=== PATIENT | female | born 1945 | race African-American/Black ===

== ENCOUNTER 2022-09-22 14:31 | Emergency (ER) | payer MEDICARE ==
[2022-09-22 16:33] LABS: #Eosinphils 0.3 thou/uL (0.0-0.7); #Lymphocytes 1.5 thou/uL (1.20-3.40); #Monocytes 0.5 thou/uL (0.11-0.59); #Neutrophils 4.4 thou/uL (1.40-6.50); %Basophils 0.2 % (0.0-1.0); %Eosinophils 4.6 % (0.0-10.0); %Monocytes 6.6 % (0.0-10.0); %Neutrophils 65.6 % (42.0-75.0); Hemoglobin 9.9 g/dL (12.0-16.0); Mean Corpuscular Hemoglobin 21.7 pg (27.0-31.0); Mean Corpuscular Volume 72.3 fl (78.0-98.0); Mean Platelet Volume 11.9 fL (7.4-10.4); Platelet Count 323 10x3/uL (130-400); Red Blood Cell (RBC) Count 4.55 mill/uL (4.20-5.40); White Blood Cell (WBC) Count 6.7 10x3/uL (4.8-10.8)
[2022-09-22 16:43] LABS: PTT 33.1 sec (22.9-36.1); Prothrombin Time 13.5 sec (12.0-14.7)
[2022-09-22 16:47] LABS: Anisocytosis SLIGHT = 6-15 cells (100X) (0-5/hpf); Hypochromia SLIGHT = 6-15 cells (100X) (0-5/hpf); MDiff Complete? YES; Microcytosis SLIGHT = 6-15 cells (100X) (0-5/hpf); Ovalocytes SLIGHT = 2-5 cells (100X) (0-1/hpf); Platelet Morphology Comment Appears Adequate; Polychromasia SLIGHT = 2-3 cells (100X) (0-2/hpf); Target Cells SLIGHT = 2-5 cells (100X) (0-1/hpf)
[2022-09-22 16:55] LABS: ALT (SGPT) 7 U/L (8-55); AST (SGOT) 16 U/L (5-34); Albumin 3.5 g/dL (3.4-4.8); Alkaline Phosphatase 92 U/L (40-110); Anion Gap 17 mmol/L (10-20); BUN (Urea Nitrogen) 27 mg/dL (9.8-20.1); Bilirubin, Total 0.5 mg/dL (0.2-1.2); Calc. Creatinine Clearance 0 mL/min (70-130); Calcium 9.9 mg/dL (7.8-10.44); Carbon Dioxide 29 mmol/L (23-31); Chloride 96 mmol/L (98-107); Estimated GFR 15; Globulin 2.7 g/dL (2.4-3.5); Glucose 131 mg/dL (83-110); Lipase 33 U/L (8-78); Magnesium 2.5 mg/dL (1.6-2.6); Potassium 4.6 mmol/L (3.5-5.1); Protein, Total 6.2 g/dL (5.8-8.1); Sodium 137 mmol/L (136-145)
== END 2022-09-22 19:40 | disposition home or self-care (01) ==
LOC: ERS 14:31
DX: R06.00 Dyspnea, unspecified (principal); R60.9 Edema, unspecified; R79.89 Other specified abnormal findings of blood chemistry; E03.9 Hypothyroidism, unspecified; E11.9 Type 2 diabetes mellitus without complications; I11.0 Hypertensive heart disease with heart failure; I50.9 Heart failure, unspecified; E78.00 Pure hypercholesterolemia, unspecified
CPT/HCPCS: 36415; 71045; 80053; 83690; 83735; 83880; 84484; 85025; 85610; 85730

== ENCOUNTER 2022-09-28 21:30 | Inpatient (IN) | payer MEDICARE ==
[2022-09-28] MEDS ORDERED: Nitroglycerin 2% Ointment 1 INCH/1 GM Packet ONE (22:12)
[2022-09-28] MEDS ORDERED: Nitroglycerin 0.4 MG TAB 1 EACH ONE (22:12)
[2022-09-29] MEDS ORDERED: Acetaminophen 650 MG Suppository PR PRN (01:34)
[2022-09-29] MEDS ORDERED: Ondansetron ODT 4 MG TAB PO PRN (01:34)
[2022-09-29] MEDS ORDERED: Dextrose 5% in Water 1,000 ML IV PRN (01:50)
[2022-09-29] MEDS ORDERED: Dextrose 50% Abboject 50 ML SYRINGE SLOW IVP PRN (01:50)
[2022-09-29 02:18] LABS: Troponin I Less than 0.010 ng/mL (< 0.028)
[2022-09-29] MEDS ORDERED: methylPREDNISolone Sod Succ 40 MG VIAL IVP SCH (04:15)
[2022-09-29] MEDS: Dextrose 10% in Water 1,000 ML IV SCH ×2 (04:55→09:07)
[2022-09-29 05:19] LABS: Anion Gap 12 mmol/L (10-20); BUN (Urea Nitrogen) 21 mg/dL (9.8-20.1); Calc. Creatinine Clearance 17 mL/min (70-130); Calcium 8.5 mg/dL (7.8-10.44); Carbon Dioxide 28 mmol/L (23-31); Chloride 98 mmol/L (98-107); Estimated GFR 17; Glucose 184 mg/dL (83-110); Sodium 134 mmol/L (136-145)
[2022-09-29 05:26] LABS: Troponin I Less than 0.010 ng/mL (< 0.028)
[2022-09-29 05:46] LABS: Hemoglobin 8.7 g/dL (12.0-16.0); Mean Corpuscular HGB CONC 32.2 g/dL (32.0-36.0); Mean Corpuscular Hemoglobin 24.1 pg (27.0-31.0); Mean Corpuscular Volume 74.9 fl (78.0-98.0); Mean Platelet Volume 11.6 fL (7.4-10.4); Platelet Count 226 10x3/uL (130-400); RBC Distribution Width 18.3 % (11.5-14.5); Red Blood Cell (RBC) Count 3.62 mill/uL (4.20-5.40); White Blood Cell (WBC) Count 8.3 10x3/uL (4.8-10.8)
[2022-09-29 06:16] LABS: Band 4 % (5-11); Burr Cells SLIGHT = 2-5 cells (100X) (0-1/hpf); Eosinophils 4 % (0-10); Lymphocytes 5 % (21-51); MDiff Complete? YES; Microcytosis MODERATE=15-30 cells (100X) (0-5/hpf); Monocytes 7 % (0-10); Neutrophil 80 % (42-75); Platelet Morphology Comment Appears Adequate; Target Cells SLIGHT = 2-5 cells (100X) (0-1/hpf); Tear Drops SLIGHT = 2-5 cells (100X) (0-1/hpf)
[2022-09-29] MEDS ORDERED: Enoxaparin Sodium 40 MG/0.4 ML SYRINGE SC SCH (09:00)
[2022-09-29] MEDS: Furosemide 40 MG/4 ML VIAL SLOW IVP SCH (09:11)
[2022-09-29] MEDS: cefTRIAXone\\ROCEPHIN 1 GM in Sodium Chloride 0.9% 100 ML IVPB SCH (14:40)
[2022-09-29] MEDS: Mometasone 200 MCG/Formoterol 5 MCG 120 PUFF INHALER INH SCH (18:21)
[2022-09-29] MEDS ORDERED: hydrALAZINE 20 MG/ML VIAL SLOW IVP SCH (20:45)
[2022-09-30] MEDS: Acetaminophen 325 MG TAB PO PRN ×2 (01:05→11:16)
[2022-09-30] MEDS ORDERED: hydrALAZINE 20 MG/ML VIAL SLOW IVP SCH (05:00)
[2022-09-30] MEDS ORDERED: cloNIDine 0.2 MG TAB PO PRN ×2 (07:30→08:20)
[2022-09-30] MEDS: hydrALAZINE 25 MG TAB PO SCH ×3 (08:48→18:33)
[2022-09-30] MEDS: Furosemide 40 MG/4 ML VIAL SLOW IVP SCH (08:48)
[2022-09-30] MEDS: methylPREDNISolone Sod Succ 40 MG VIAL IVP SCH (08:48)
[2022-09-30] MEDS: NIFEdipine XL 90 MG TAB PO SCH (08:49)
[2022-09-30] MEDS: Calcitriol 0.25 MCG CAP PO SCH (08:49)
[2022-09-30] MEDS: Aspirin 81 mg Enteric Coated Tablet PO SCH (08:49)
[2022-09-30] MEDS: Magnesium Oxide 400 MG TAB PO SCH (08:49)
[2022-09-30] MEDS: Mometasone 200 MCG/Formoterol 5 MCG 120 PUFF INHALER INH SCH ×2 (08:55→17:15)
[2022-09-30] MEDS ORDERED: Potassium Chloride 20 MEQ TAB PO SCH (09:00)
[2022-09-30] MEDS ORDERED: Enoxaparin Sodium 30 MG/0.3 ML SYRINGE SC SCH ×2 (09:00→19:04)
[2022-09-30] MEDS ORDERED: guaiFENesin 200 MG TAB PO PRN (10:32)
[2022-09-30] MEDS ORDERED: Iopamidol-370 76% 500 ML 1 ML ONE (10:58)
[2022-09-30] MEDS ORDERED: Dextrose 5% in Water 1,000 ML IV PRN (13:41)
[2022-09-30] MEDS ORDERED: Dextrose 50% Abboject 50 ML SYRINGE SLOW IVP PRN (13:41)
[2022-09-30] MEDS: cefTRIAXone\\ROCEPHIN 1 GM in Sodium Chloride 0.9% 100 ML IVPB SCH (15:29)
[2022-09-30] MEDS ORDERED: hydrALAZINE 20 MG/ML VIAL ONE (17:21)
[2022-09-30] MEDS: Ondansetron PF 4 MG/2 ML Vial IVP PRN (21:18)
[2022-09-30] MEDS: Atorvastatin Calcium 10 MG TAB PO SCH (21:19)
[2022-09-30] MEDS: Terazosin HCl 5 MG CAP PO SCH (21:19)
[2022-09-30] MEDS: HumaLOG 300 UNITS/3 ML VIAL SC PRN (22:28)
[2022-10-01] MEDS: Ondansetron PF 4 MG/2 ML Vial IVP PRN ×3 (05:04→18:04)
[2022-10-01 05:20] LABS: #Basophils 0.1 thou/uL (0.0-0.2); #Eosinphils 0.1 thou/uL (0.0-0.7); #Lymphocytes 1.6 thou/uL (1.20-3.40); #Monocytes 1.1 thou/uL (0.11-0.59); #Neutrophils 7.2 thou/uL (1.40-6.50); %Basophils 0.5 % (0.0-1.0); %Eosinophils 1.4 % (0.0-10.0); %Lymphocytes 15.8 % (21.0-51.0); %Monocytes 11.1 % (0.0-10.0); %Neutrophils 71.1 % (42.0-75.0); Mean Corpuscular HGB CONC 28.1 g/dL (32.0-36.0); Mean Corpuscular Hemoglobin 20.8 pg (27.0-31.0); Mean Corpuscular Volume 73.9 fl (78.0-98.0); Mean Platelet Volume 11.8 fL (7.4-10.4); Platelet Count 289 10x3/uL (130-400); Red Blood Cell (RBC) Count 3.83 mill/uL (4.20-5.40); White Blood Cell (WBC) Count 10.1 10x3/uL (4.8-10.8)
[2022-10-01 05:29] LABS: Anion Gap 12 mmol/L (10-20); BUN (Urea Nitrogen) 21 mg/dL (9.8-20.1); Calc. Creatinine Clearance 21 mL/min (70-130); Calcium 8.9 mg/dL (7.8-10.44); Carbon Dioxide 33 mmol/L (23-31); Chloride 95 mmol/L (98-107); Estimated GFR 22; Glucose 82 mg/dL (83-110); Potassium 3.4 mmol/L (3.5-5.1); Sodium 137 mmol/L (136-145)
[2022-10-01] MEDS: Mometasone 200 MCG/Formoterol 5 MCG 120 PUFF INHALER INH SCH ×2 (06:55→18:22)
[2022-10-01] MEDS: methylPREDNISolone Sod Succ 40 MG VIAL IVP SCH (09:53)
[2022-10-01] MEDS: Furosemide 40 MG/4 ML VIAL SLOW IVP SCH (09:53)
[2022-10-01] MEDS: Heparin 5,000 UNITS/ML VIAL SC SCH ×3 (09:54→21:15)
[2022-10-01] MEDS: NIFEdipine XL 90 MG TAB PO SCH (10:45)
[2022-10-01] MEDS: hydrALAZINE 25 MG TAB PO SCH ×3 (10:45→18:03)
[2022-10-01] MEDS: Aspirin 81 mg Enteric Coated Tablet PO SCH (10:45)
[2022-10-01] MEDS: Calcitriol 0.25 MCG CAP PO SCH (10:46)
[2022-10-01] MEDS: Magnesium Oxide 400 MG TAB PO SCH (10:46)
[2022-10-01] MEDS: cefTRIAXone\\ROCEPHIN 1 GM in Sodium Chloride 0.9% 100 ML IVPB SCH (14:59)
[2022-10-01] MEDS: Terazosin HCl 5 MG CAP PO SCH (21:15)
[2022-10-01] MEDS: Atorvastatin Calcium 10 MG TAB PO SCH (21:15)
[2022-10-01] MEDS: Cefuroxime 250 MG TAB PO SCH (21:15)
[2022-10-01] MEDS: Acetaminophen 325 MG TAB PO PRN (22:24)
[2022-10-02 04:42] LABS: #Eosinphils 0.1 thou/uL (0.0-0.7); #Lymphocytes 1.9 thou/uL (1.20-3.40); #Monocytes 0.8 thou/uL (0.11-0.59); #Neutrophils 6.2 thou/uL (1.40-6.50); %Basophils 0.3 % (0.0-1.0); %Eosinophils 0.7 % (0.0-10.0); %Lymphocytes 20.7 % (21.0-51.0); %Monocytes 9.2 % (0.0-10.0); %Neutrophils 69.1 % (42.0-75.0); Mean Corpuscular HGB CONC 28.6 g/dL (32.0-36.0); Mean Corpuscular Hemoglobin 21.3 pg (27.0-31.0); Mean Corpuscular Volume 74.2 fl (78.0-98.0); Platelet Count 317 10x3/uL (130-400); Red Blood Cell (RBC) Count 3.75 mill/uL (4.20-5.40); White Blood Cell (WBC) Count 8.9 10x3/uL (4.8-10.8)
[2022-10-02 05:01] LABS: Anion Gap 15 mmol/L (10-20); BUN (Urea Nitrogen) 26 mg/dL (9.8-20.1); Calc. Creatinine Clearance 19 mL/min (70-130); Carbon Dioxide 33 mmol/L (23-31); Chloride 93 mmol/L (98-107); Estimated GFR 20; Glucose 111 mg/dL (83-110); Potassium 3.5 mmol/L (3.5-5.1); Sodium 137 mmol/L (136-145)
[2022-10-02] MEDS: Mometasone 200 MCG/Formoterol 5 MCG 120 PUFF INHALER INH SCH ×2 (06:47→18:27)
[2022-10-02] MEDS: hydrALAZINE 25 MG TAB PO SCH ×3 (09:42→17:25)
[2022-10-02] MEDS: methylPREDNISolone Sod Succ 40 MG VIAL IVP SCH (09:43)
[2022-10-02] MEDS: Magnesium Oxide 400 MG TAB PO SCH (09:43)
[2022-10-02] MEDS: Calcitriol 0.25 MCG CAP PO SCH (09:44)
[2022-10-02] MEDS: Aspirin 81 mg Enteric Coated Tablet PO SCH (09:44)
[2022-10-02] MEDS: Cefuroxime 250 MG TAB PO SCH ×2 (09:44→21:10)
[2022-10-02] MEDS: NIFEdipine XL 90 MG TAB PO SCH (09:44)
[2022-10-02] MEDS: Heparin 5,000 UNITS/ML VIAL SC SCH ×3 (09:45→21:11)
[2022-10-02] MEDS: Furosemide 40 MG/4 ML VIAL SLOW IVP SCH (09:45)
[2022-10-02] MEDS: HumaLOG 300 UNITS/3 ML VIAL SC PRN (17:28)
[2022-10-02] MEDS ORDERED: HYDROcodone/Acetaminophen 5/325 mg Tablet PO SCH (19:15)
[2022-10-02] MEDS: Terazosin HCl 5 MG CAP PO SCH (21:10)
[2022-10-02] MEDS: Atorvastatin Calcium 10 MG TAB PO SCH (21:10)
[2022-10-03] MEDS: Acetaminophen 325 MG TAB PO PRN (05:03)
[2022-10-03 05:17] LABS: Anion Gap 17 mmol/L (10-20); BUN (Urea Nitrogen) 30 mg/dL (9.8-20.1); Calc. Creatinine Clearance 19 mL/min (70-130); Calcium 9.1 mg/dL (7.8-10.44); Carbon Dioxide 30 mmol/L (23-31); Chloride 94 mmol/L (98-107); Cholesterol 161 mg/dl (< 200 Desired); Estimated GFR 20; Glucose 80 mg/dL (83-110); HDL Cholesterol 81 mg/dL (>60 Neg Risk); LDL Cholesterol, Calculated 67 mg/dL; Potassium 3.6 mmol/L (3.5-5.1); Sodium 137 mmol/L (136-145); Triglycerides 64 mg/dL (Less than 150)
[2022-10-03 05:53] LABS: Anisocytosis SLIGHT = 6-15 cells (100X) (0-5/hpf); Hemoglobin 8.4 g/dL (12.0-16.0); Hypochromia MODERATE=16-30 cells (100X) (0-5/hpf); Lymphocytes 18 % (21-51); MDiff Complete? YES; Mean Corpuscular HGB CONC 28.4 g/dL (32.0-36.0); Mean Corpuscular Volume 74.1 fl (78.0-98.0); Mean Platelet Volume 11.2 fL (7.4-10.4); Microcytosis MODERATE=15-30 cells (100X) (0-5/hpf); Monocytes 9 % (0-10); Neutrophil 73 % (42-75); Ovalocytes SLIGHT = 2-5 cells (100X) (0-1/hpf); Platelet Count 375 10x3/uL (130-400); Platelet Morphology Comment Appears Adequate; Polychromasia SLIGHT = 2-3 cells (100X) (0-2/hpf); RBC Distribution Width 18.3 % (11.5-14.5); Target Cells SLIGHT = 2-5 cells (100X) (0-1/hpf); White Blood Cell (WBC) Count 10.2 10x3/uL (4.8-10.8)
[2022-10-03] MEDS: Mometasone 200 MCG/Formoterol 5 MCG 120 PUFF INHALER INH SCH ×2 (07:47→18:24)
[2022-10-03] MEDS ORDERED: Morphine 4 MG/ML VIAL SLOW IVP SCH (09:45)
[2022-10-03] MEDS: methylPREDNISolone Sod Succ 40 MG VIAL IVP SCH (10:05)
[2022-10-03] MEDS: Furosemide 40 MG/4 ML VIAL SLOW IVP SCH (10:05)
[2022-10-03] MEDS: Heparin 5,000 UNITS/ML VIAL SC SCH ×3 (10:05→21:45)
[2022-10-03] MEDS: hydrALAZINE 25 MG TAB PO SCH ×3 (10:06→16:12)
[2022-10-03] MEDS: Cefuroxime 250 MG TAB PO SCH ×2 (10:06→21:44)
[2022-10-03] MEDS: NIFEdipine XL 90 MG TAB PO SCH (10:06)
[2022-10-03] MEDS: Calcitriol 0.25 MCG CAP PO SCH (10:06)
[2022-10-03] MEDS: Magnesium Oxide 400 MG TAB PO SCH (10:06)
[2022-10-03] MEDS: Aspirin 81 mg Enteric Coated Tablet PO SCH (10:07)
[2022-10-03] MEDS: Ondansetron PF 4 MG/2 ML Vial IVP PRN (10:20)
[2022-10-03] MEDS ORDERED: Pantoprazole 40 MG VIAL IVP SCH (11:30)
[2022-10-03] MEDS ORDERED: Carvedilol 6.25 MG TAB PO SCH (11:45)
[2022-10-03] MEDS: Carvedilol 6.25 MG TAB PO SCH (16:13)
[2022-10-03] MEDS ORDERED: Mag-Al 1200 mg/1200 mg/30 ML UDCUP PO PRN (16:48)
[2022-10-03] MEDS: Terazosin HCl 5 MG CAP PO SCH (21:44)
[2022-10-03] MEDS: Atorvastatin Calcium 10 MG TAB PO SCH (21:44)
[2022-10-03] MEDS: Pantoprazole 40 MG VIAL IVP SCH (21:44)
[2022-10-04] MEDS: Mometasone 200 MCG/Formoterol 5 MCG 120 PUFF INHALER INH SCH ×2 (07:13→19:00)
[2022-10-04] MEDS: Carvedilol 6.25 MG TAB PO SCH ×3 (10:21→16:36)
[2022-10-04] MEDS: Heparin 5,000 UNITS/ML VIAL SC SCH ×3 (10:21→22:07)
[2022-10-04] MEDS: hydrALAZINE 25 MG TAB PO SCH ×4 (10:21→16:36)
[2022-10-04] MEDS: Magnesium Oxide 400 MG TAB PO SCH (10:23)
[2022-10-04] MEDS: NIFEdipine XL 90 MG TAB PO SCH (10:23)
[2022-10-04] MEDS: predniSONE 20 MG TAB PO SCH (10:23)
[2022-10-04] MEDS: Aspirin 81 mg Enteric Coated Tablet PO SCH (10:23)
[2022-10-04] MEDS: Cefuroxime 250 MG TAB PO SCH ×2 (10:24→22:05)
[2022-10-04] MEDS: Calcitriol 0.25 MCG CAP PO SCH (10:24)
[2022-10-04] MEDS: Amino Acids 4.25 %/Dextrose 5% 1,000 ML IV SCH ×2 (11:02→22:07)
[2022-10-04] MEDS: Pantoprazole 40 MG VIAL IVP SCH ×2 (11:02→22:05)
[2022-10-04] MEDS: Ondansetron PF 4 MG/2 ML Vial IVP SCH (11:02)
[2022-10-04] MEDS: Ondansetron PF 4 MG/2 ML Vial IVP PRN ×2 (16:27→22:39)
[2022-10-04] MEDS: HumaLOG 300 UNITS/3 ML VIAL SC PRN (18:15)
[2022-10-04] MEDS: Terazosin HCl 5 MG CAP PO SCH (22:05)
[2022-10-04] MEDS: Atorvastatin Calcium 10 MG TAB PO SCH (22:05)
[2022-10-04] MEDS: Acetaminophen 325 MG TAB PO PRN (22:39)
[2022-10-05 06:21] LABS: Hemoglobin 7.5 g/dL (12.0-16.0); Mean Corpuscular HGB CONC 28.4 g/dL (32.0-36.0); Mean Corpuscular Hemoglobin 21.1 pg (27.0-31.0); Mean Corpuscular Volume 74.4 fl (78.0-98.0); Mean Platelet Volume 10.7 fL (7.4-10.4); Platelet Count 346 10x3/uL (130-400); RBC Distribution Width 18.6 % (11.5-14.5); Red Blood Cell (RBC) Count 3.56 mill/uL (4.20-5.40); White Blood Cell (WBC) Count 11.6 10x3/uL (4.8-10.8)
[2022-10-05 06:24] LABS: Anion Gap 11 mmol/L (10-20); BUN (Urea Nitrogen) 53 mg/dL (9.8-20.1); Calc. Creatinine Clearance 22 mL/min (70-130); Calcium 8.7 mg/dL (7.8-10.44); Carbon Dioxide 35 mmol/L (23-31); Chloride 89 mmol/L (98-107); Estimated GFR 25; Glucose 135 mg/dL (83-110); Potassium 3.5 mmol/L (3.5-5.1); Sodium 131 mmol/L (136-145)
[2022-10-05] MEDS: Mometasone 200 MCG/Formoterol 5 MCG 120 PUFF INHALER INH SCH ×2 (08:09→19:14)
[2022-10-05] MEDS: Carvedilol 6.25 MG TAB PO SCH ×3 (08:49→16:37)
[2022-10-05] MEDS: Heparin 5,000 UNITS/ML VIAL SC SCH ×3 (08:50→20:28)
[2022-10-05] MEDS: NIFEdipine XL 90 MG TAB PO SCH (08:50)
[2022-10-05] MEDS: Aspirin 81 mg Enteric Coated Tablet PO SCH (08:50)
[2022-10-05] MEDS: Magnesium Oxide 400 MG TAB PO SCH (08:50)
[2022-10-05] MEDS: Cefuroxime 250 MG TAB PO SCH ×2 (08:50→20:28)
[2022-10-05] MEDS: predniSONE 20 MG TAB PO SCH (08:50)
[2022-10-05] MEDS: hydrALAZINE 25 MG TAB PO SCH ×4 (08:50→16:38)
[2022-10-05] MEDS: Pantoprazole 40 MG VIAL IVP SCH ×2 (08:51→20:28)
[2022-10-05] MEDS: Ondansetron PF 4 MG/2 ML Vial IVP SCH (08:51)
[2022-10-05] MEDS: Calcitriol 0.25 MCG CAP PO SCH (08:52)
[2022-10-05] MEDS ORDERED: Amino Acids 4.25 %/Dextrose 5% 1,000 ML IV SCH (12:15)
[2022-10-05] MEDS: Atorvastatin Calcium 40 MG TAB PO SCH (20:28)
[2022-10-05] MEDS: Terazosin HCl 5 MG CAP PO SCH (20:28)
[2022-10-05] MEDS: Acetaminophen 325 MG TAB PO PRN (20:31)
[2022-10-06] MEDS: Mometasone 200 MCG/Formoterol 5 MCG 120 PUFF INHALER INH SCH ×2 (08:37→18:39)
[2022-10-06] MEDS: Carvedilol 6.25 MG TAB PO SCH ×2 (08:50→16:14)
[2022-10-06] MEDS: Magnesium Oxide 400 MG TAB PO SCH (08:51)
[2022-10-06] MEDS: Cefuroxime 250 MG TAB PO SCH ×2 (08:51→21:51)
[2022-10-06] MEDS: hydrALAZINE 25 MG TAB PO SCH ×3 (08:51→16:14)
[2022-10-06] MEDS: predniSONE 20 MG TAB PO SCH (08:51)
[2022-10-06] MEDS: Aspirin 81 mg Enteric Coated Tablet PO SCH (08:51)
[2022-10-06] MEDS: Heparin 5,000 UNITS/ML VIAL SC SCH ×3 (08:51→21:52)
[2022-10-06] MEDS: NIFEdipine XL 90 MG TAB PO SCH (08:51)
[2022-10-06] MEDS: Pantoprazole 40 MG VIAL IVP SCH ×2 (08:52→21:52)
[2022-10-06] MEDS: Calcitriol 0.25 MCG CAP PO SCH (08:52)
[2022-10-06] MEDS: Ondansetron PF 4 MG/2 ML Vial IVP SCH (08:52)
[2022-10-06] MEDS: Atorvastatin Calcium 40 MG TAB PO SCH (21:51)
[2022-10-06] MEDS: Terazosin HCl 5 MG CAP PO SCH (21:51)
[2022-10-06] MEDS: HumaLOG 300 UNITS/3 ML VIAL SC PRN (21:52)
[2022-10-07 05:58] LABS: Hemoglobin 7.2 g/dL (12.0-16.0); Mean Corpuscular HGB CONC 29.3 g/dL (32.0-36.0); Mean Corpuscular Hemoglobin 22.1 pg (27.0-31.0); Mean Corpuscular Volume 75.3 fl (78.0-98.0); Mean Platelet Volume 10.8 fL (7.4-10.4); Platelet Count 298 10x3/uL (130-400); RBC Distribution Width 19.4 % (11.5-14.5); Red Blood Cell (RBC) Count 3.24 mill/uL (4.20-5.40); White Blood Cell (WBC) Count 11.2 10x3/uL (4.8-10.8)
[2022-10-07 06:04] LABS: Anion Gap 13 mmol/L (10-20); BUN (Urea Nitrogen) 51 mg/dL (9.8-20.1); Calc. Creatinine Clearance 23 mL/min (70-130); Calcium 9.2 mg/dL (7.8-10.44); Carbon Dioxide 34 mmol/L (23-31); Chloride 95 mmol/L (98-107); Estimated GFR 26; Glucose 100 mg/dL (83-110); Potassium 3.8 mmol/L (3.5-5.1); Sodium 138 mmol/L (136-145)
[2022-10-07] MEDS: Mometasone 200 MCG/Formoterol 5 MCG 120 PUFF INHALER INH SCH ×2 (08:24→19:15)
[2022-10-07] MEDS: Carvedilol 6.25 MG TAB PO SCH ×2 (08:54→16:18)
[2022-10-07] MEDS: predniSONE 20 MG TAB PO SCH (08:54)
[2022-10-07] MEDS: Ondansetron PF 4 MG/2 ML Vial IVP SCH (08:55)
[2022-10-07] MEDS: hydrALAZINE 25 MG TAB PO SCH ×3 (08:55→16:18)
[2022-10-07] MEDS: Heparin 5,000 UNITS/ML VIAL SC SCH ×3 (08:55→20:39)
[2022-10-07] MEDS: Magnesium Oxide 400 MG TAB PO SCH (08:55)
[2022-10-07] MEDS: NIFEdipine XL 90 MG TAB PO SCH (08:56)
[2022-10-07] MEDS: Pantoprazole 40 MG VIAL IVP SCH ×2 (08:56→20:39)
[2022-10-07] MEDS: Cefuroxime 250 MG TAB PO SCH ×2 (08:56→20:38)
[2022-10-07] MEDS: Aspirin 81 mg Enteric Coated Tablet PO SCH (08:56)
[2022-10-07] MEDS: Calcitriol 0.25 MCG CAP PO SCH (08:56)
[2022-10-07] MEDS ORDERED: Docusate 100 MG CAP PO SCH (16:00)
[2022-10-07] MEDS ORDERED: Polyethylene Glycol 3350 17 GM Packet PO SCH (16:00)
[2022-10-07] MEDS: HumaLOG 300 UNITS/3 ML VIAL SC PRN ×2 (18:42→20:40)
[2022-10-07] MEDS: Atorvastatin Calcium 40 MG TAB PO SCH (20:37)
[2022-10-07] MEDS: Acetaminophen 325 MG TAB PO PRN (20:37)
[2022-10-07] MEDS: Terazosin HCl 5 MG CAP PO SCH (20:38)
[2022-10-07] MEDS ORDERED: Dicyclomine 10 MG CAP PO SCH (23:30)
[2022-10-08] MEDS ORDERED: Sodium Chloride 0.9% 500 ML IV SCH ×2 (02:45→04:00)
[2022-10-08 04:15] LABS: Hemoglobin 5.2 g/dL (12.0-16.0); Mean Corpuscular HGB CONC 32.5 g/dL (32.0-36.0); Mean Corpuscular Hemoglobin 24.1 pg (27.0-31.0); Mean Corpuscular Volume 74.4 fl (78.0-98.0); Mean Platelet Volume 10.5 fL (7.4-10.4); Platelet Count 236 10x3/uL (130-400); RBC Distribution Width 20.4 % (11.5-14.5); Red Blood Cell (RBC) Count 2.14 mill/uL (4.20-5.40); White Blood Cell (WBC) Count 13.1 10x3/uL (4.8-10.8)
[2022-10-08 04:23] LABS: Anion Gap 11 mmol/L (10-20); BUN (Urea Nitrogen) 53 mg/dL (9.8-20.1); Calc. Creatinine Clearance 18 mL/min (70-130); Calcium 8.9 mg/dL (7.8-10.44); Carbon Dioxide 34 mmol/L (23-31); Chloride 93 mmol/L (98-107); Estimated GFR 19; Glucose 107 mg/dL (83-110); Potassium 4.1 mmol/L (3.5-5.1); Sodium 134 mmol/L (136-145)
[2022-10-08] MEDS ORDERED: Sucralfate 1 GM TAB PO SCH (04:30)
[2022-10-08 04:33] LABS: #Eosinphils 0.1 thou/uL (0.0-0.7); #Lymphocytes 1.4 thou/uL (1.20-3.40); #Monocytes 0.9 thou/uL (0.11-0.59); #Neutrophils 10.7 thou/uL (1.40-6.50); %Eosinophils 0.6 % (0.0-10.0); %Lymphocytes 10.6 % (21.0-51.0); %Monocytes 7.2 % (0.0-10.0); %Neutrophils 81.6 % (42.0-75.0); Anisocytosis SLIGHT = 6-15 cells (100X) (0-5/hpf); Hypochromia MODERATE=16-30 cells (100X) (0-5/hpf); MDiff Complete? YES; Microcytosis SLIGHT = 6-15 cells (100X) (0-5/hpf); Schistocytes SLIGHT = 2-5 cells (100X) (0-1/hpf); Tear Drops SLIGHT = 2-5 cells (100X) (0-1/hpf)
[2022-10-08] MEDS ORDERED: Sodium Chloride 0.9% 1,000 ML IV SCH (05:00)
[2022-10-08] MEDS: Ondansetron PF 4 MG/2 ML Vial IVP PRN ×3 (06:32→18:35)
[2022-10-08] MEDS: Mometasone 200 MCG/Formoterol 5 MCG 120 PUFF INHALER INH SCH ×2 (08:31→19:36)
[2022-10-08] MEDS: Carvedilol 6.25 MG TAB PO SCH ×2 (08:37→17:42)
[2022-10-08] MEDS: Heparin 5,000 UNITS/ML VIAL SC SCH (08:38)
[2022-10-08] MEDS: Magnesium Oxide 400 MG TAB PO SCH (08:39)
[2022-10-08] MEDS: Pantoprazole 40 MG VIAL IVP SCH ×2 (08:40→21:45)
[2022-10-08] MEDS: Calcitriol 0.25 MCG CAP PO SCH (08:40)
[2022-10-08] MEDS: predniSONE 20 MG TAB PO SCH (08:40)
[2022-10-08] MEDS: Aspirin 81 mg Enteric Coated Tablet PO SCH (08:40)
[2022-10-08 08:43] VITALS: BMI 25.6
[2022-10-08] MEDS: Cefuroxime 250 MG TAB PO SCH (10:51)
[2022-10-08 11:20] LABS: INR-International Normal Ratio 1.2; Prothrombin Time 16.1 sec (12.0-14.7)
[2022-10-08 11:21] LABS: PTT 85.4 sec (22.9-36.1)
[2022-10-08 11:25] LABS: Hemoglobin 8.1 g/dL (12.0-16.0)
[2022-10-08 11:46] LABS: Glucose 117 mg/dL (83-110)
[2022-10-08] MEDS: Acetaminophen 325 MG TAB PO PRN (12:49)
[2022-10-08] MEDS ORDERED: NOREPINEPHRINE 8 MG/250 ML-D5W 250 ML ONE (15:16)
[2022-10-08] MEDS: NOREPINEPHRINE 8 MG/250 ML-D5W 250 ML IVPB SCH ×2 (15:20→22:01)
[2022-10-08 15:39] LABS: #Lymphocytes 1.4 thou/uL (1.20-3.40); #Monocytes 0.7 thou/uL (0.11-0.59); #Neutrophils 15.4 thou/uL (1.40-6.50); %Eosinophils 0.2 % (0.0-10.0); %Lymphocytes 7.8 % (21.0-51.0); %Monocytes 4.1 % (0.0-10.0); %Neutrophils 87.9 % (42.0-75.0); Hemoglobin 6.9 g/dL (12.0-16.0); Mean Corpuscular HGB CONC 32.1 g/dL (32.0-36.0); Mean Corpuscular Hemoglobin 26.8 pg (27.0-31.0); Mean Corpuscular Volume 83.7 fl (78.0-98.0); Mean Platelet Volume 10.4 fL (7.4-10.4); Platelet Count 193 10x3/uL (130-400); RBC Distribution Width 17.9 % (11.5-14.5); Red Blood Cell (RBC) Count 2.59 mill/uL (4.20-5.40); White Blood Cell (WBC) Count 17.5 10x3/uL (4.8-10.8)
[2022-10-08 15:46] LABS: INR-International Normal Ratio 1.3; Prothrombin Time 16.8 sec (12.0-14.7)
[2022-10-08 15:47] LABS: PTT 55.1 sec (22.9-36.1)
[2022-10-08] MEDS ORDERED: Morphine 4 MG/ML VIAL SLOW IVP PRN (16:17)
[2022-10-08] MEDS ORDERED: FENTANYL 50 MCG/ML 1 ML VIAL SLOW IVP PRN (18:26)
[2022-10-08 19:39] LABS: Hemoglobin 8.7 g/dL (12.0-16.0)
[2022-10-08 19:50] LABS: INR-International Normal Ratio 1.3; Prothrombin Time 17.2 sec (12.0-14.7)
[2022-10-08 19:51] LABS: PTT 43.2 sec (22.9-36.1)
[2022-10-08] MEDS ORDERED: Rocuronium Bromide 10 MG/ML (10ML VIAL) ONE (20:02)
[2022-10-08] MEDS ORDERED: EPINEPHrine 4 MG in Dextrose 5% in Water 250 ML IVP SCH (20:15)
[2022-10-08 21:01] LABS: Base Excess (BEa) -2.3 mEq/L (-2.0 to +3.0); CO2 Tension 30.1 mmHg (35.0-45.0); Calcium, Ionized (arterial) 1.06 mmol/L (1.12-1.30); Carboxyhemoglobin (COHb) 0.7 gm% (0.0-3.0); Hemoglobin (Hb) 7.6 g/dL (12.0-16.0); Potassium - ABG Lab 4.46 mmol/L (3.70-5.30); pH, Arterial 7.46 (7.35-7.45)
[2022-10-08 21:14] LABS: ALV-art Gradient 202.375 mmHg (0-20); Puncture Site Arterial Line
[2022-10-08 21:47] LABS: ALT (SGPT) 286 U/L (8-55); AST (SGOT) 373 U/L (5-34); Albumin 2.3 g/dL (3.4-4.8); Alkaline Phosphatase 44 U/L (40-110); Anion Gap 18 mmol/L (10-20); BUN (Urea Nitrogen) 60 mg/dL (9.8-20.1); Bilirubin, Total 1.2 mg/dL (0.2-1.2); Calc. Creatinine Clearance 15 mL/min (70-130); Calcium 7.4 mg/dL (7.8-10.44); Carbon Dioxide 20 mmol/L (23-31); Chloride 98 mmol/L (98-107); Estimated GFR 15; Globulin 1.7 g/dL (2.4-3.5); Glucose 209 mg/dL (83-110); Potassium 4.5 mmol/L (3.5-5.1); Sodium 131 mmol/L (136-145)
[2022-10-08 21:54] LABS: Band 12 % (5-11); Hemoglobin 7.5 g/dL (12.0-16.0); Lymphocytes 9 % (21-51); MDiff Complete? YES; Mean Corpuscular HGB CONC 31.7 g/dL (32.0-36.0); Mean Corpuscular Hemoglobin 27.5 pg (27.0-31.0); Mean Corpuscular Volume 86.5 fl (78.0-98.0); Mean Platelet Volume 10.4 fL (7.4-10.4); Monocytes 3 % (0-10); Neutrophil 76 % (42-75); Platelet Count 171 10x3/uL (130-400); RBC Distribution Width 16.6 % (11.5-14.5); Red Blood Cell (RBC) Count 2.73 mill/uL (4.20-5.40); White Blood Cell (WBC) Count 21.4 10x3/uL (4.8-10.8)
[2022-10-08] MEDS: Terazosin HCl 5 MG CAP PO SCH (22:02)
[2022-10-08] MEDS: Atorvastatin Calcium 40 MG TAB PO SCH (22:02)
[2022-10-09] MEDS: NOREPINEPHRINE 8 MG/250 ML-D5W 250 ML IVPB SCH ×2 (01:42→08:05)
[2022-10-09 07:28] LABS: Mean Corpuscular HGB CONC 32.9 g/dL (32.0-36.0); Mean Corpuscular Hemoglobin 29.4 pg (27.0-31.0); Mean Corpuscular Volume 89.5 fl (78.0-98.0); Mean Platelet Volume 10.3 fL (7.4-10.4); Platelet Count 171 10x3/uL (130-400); Red Blood Cell (RBC) Count 3.05 mill/uL (4.20-5.40); White Blood Cell (WBC) Count 23.2 10x3/uL (4.8-10.8)
[2022-10-09 07:35] LABS: INR-International Normal Ratio 1.6; PTT 36.4 sec (22.9-36.1); Prothrombin Time 19.5 sec (12.0-14.7)
[2022-10-09] MEDS: Mometasone 200 MCG/Formoterol 5 MCG 120 PUFF INHALER INH SCH ×2 (07:40→18:32)
[2022-10-09 07:44] LABS: Phosphorus 4.1 mg/dL (2.3-4.7)
[2022-10-09 07:47] LABS: ALT (SGPT) 997 U/L (8-55); AST (SGOT) 2051 U/L (5-34); Albumin 2.7 g/dL (3.4-4.8); Alkaline Phosphatase 65 U/L (40-110); Anion Gap 15 mmol/L (10-20); BUN (Urea Nitrogen) 64 mg/dL (9.8-20.1); Calc. Creatinine Clearance 14 mL/min (70-130); Calcium 7.7 mg/dL (7.8-10.44); Carbon Dioxide 24 mmol/L (23-31); Chloride 97 mmol/L (98-107); Estimated GFR 13; Globulin 1.9 g/dL (2.4-3.5); Glucose 220 mg/dL (83-110); Magnesium 2.4 mg/dL (1.6-2.6); Potassium 4.5 mmol/L (3.5-5.1); Protein, Total 4.6 g/dL (5.8-8.1); Sodium 131 mmol/L (136-145)
[2022-10-09 07:57] LABS: Actual Bicarbonate (HCO3a) 24.8 mEq/L (22-28); Base Excess (BEa) 0.2 mEq/L (-2.0 to +3.0); CO2 Tension 40.1 mmHg (35.0-45.0); Calcium, Ionized (arterial) 1.09 mmol/L (1.12-1.30); Carboxyhemoglobin (COHb) 0.3 gm% (0.0-3.0); Hemoglobin (Hb) 9.5 g/dL (12.0-16.0); O2 Tension (PaO2), arterial 137.9 mmHg (> 70.0); Potassium - ABG Lab 4.43 mmol/L (3.70-5.30); pH, Arterial 7.41 (7.35-7.45)
[2022-10-09 07:59] LABS: ALV-art Gradient 97.175 mmHg (0-20); Puncture Site Arterial Line
[2022-10-09] MEDS: Magnesium Oxide 400 MG TAB PO SCH (08:04)
[2022-10-09] MEDS: Calcitriol 0.25 MCG CAP PO SCH (08:04)
[2022-10-09] MEDS: Carvedilol 6.25 MG TAB PO SCH ×2 (08:05→17:03)
[2022-10-09] MEDS: Pantoprazole 40 MG VIAL IVP SCH ×2 (08:05→21:07)
[2022-10-09 09:43] LABS: Band 8 % (5-11); Lymphocytes 9 % (21-51); MDiff Complete? YES; Monocytes 7 % (0-10); Neutrophil 76 % (42-75); Platelet Morphology Comment Appears Adequate; Polychromasia MODERATE = 3-4 cells (100X) (0-2/hpf)
[2022-10-09 12:52] LABS: Hemoglobin 9.8 g/dL (12.0-16.0)
[2022-10-09] MEDS: Dextrose 5%-Lactated Ringers 1,000 ML IV SCH (13:58)
[2022-10-09] MEDS ORDERED: Lactated Ringer's 1,000 ML IV SCH (15:45)
[2022-10-09] MEDS: HumaLOG 300 UNITS/3 ML VIAL SC PRN (17:04)
[2022-10-09 18:44] VITALS: TEMP 97.7
[2022-10-09 18:50] LABS: Hemoglobin 6.9 g/dL (12.0-16.0)
[2022-10-09 19:58] LABS: Mean Corpuscular HGB CONC 33.9 g/dL (32.0-36.0); Mean Corpuscular Hemoglobin 29.9 pg (27.0-31.0); Mean Corpuscular Volume 88.2 fl (78.0-98.0); Mean Platelet Volume 10.2 fL (7.4-10.4); Platelet Count 134 10x3/uL (130-400); RBC Distribution Width 15.1 % (11.5-14.5); Red Blood Cell (RBC) Count 2.33 mill/uL (4.20-5.40); White Blood Cell (WBC) Count 22.7 10x3/uL (4.8-10.8)
[2022-10-09 20:08] LABS: INR-International Normal Ratio 1.5; Prothrombin Time 18.6 sec (12.0-14.7)
[2022-10-09 20:09] LABS: PTT 38.6 sec (22.9-36.1)
[2022-10-09 20:27] LABS: Anisocytosis SLIGHT = 6-15 cells (100X) (0-5/hpf); Band 10 % (5-11); Eosinophils 1 % (0-10); Lymphocytes 10 % (21-51); MDiff Complete? YES; Microcytosis SLIGHT = 6-15 cells (100X) (0-5/hpf); Monocytes 4 % (0-10); Neutrophil 75 % (42-75); Platelet Morphology Comment Appears Adequate; Schistocytes SLIGHT = 2-5 cells (100X) (0-1/hpf)
[2022-10-09] MEDS ORDERED: Furosemide 100 MG/10 ML VIAL SLOW IVP SCH (20:45)
[2022-10-09] MEDS: Atorvastatin Calcium 40 MG TAB PO SCH (21:07)
[2022-10-09] MEDS ORDERED: Phytonadione 10 MG in Sodium Chloride 0.9% 50 ML IVPB SCH (22:45)
[2022-10-09] MEDS ORDERED: Piperacillin/Tazobactam 3.375 GM in Sodium Chloride 0.9% 100 ML IVPB SCH (23:30)
[2022-10-09 23:56] VITALS: BP 114/42
[2022-10-10] MEDS: Dextrose 5%-Lactated Ringers 1,000 ML IV SCH ×3 (00:25→00:39)
[2022-10-10 01:15] LABS: Hemoglobin 10.4 g/dL (12.0-16.0)
[2022-10-10] MEDS ORDERED: Piperacillin/Tazobactam 3.375 GM in Sodium Chloride 0.9% 100 ML IVPB SCH (04:00)
[2022-10-10] MEDS ORDERED: Piperacillin/Tazobactam 2.25 GM in Sodium Chloride 0.9% 100 ML IVPB SCH (23:30)
== END 2022-10-10 01:45 | disposition short-term general hospital (02) | DRG 208 ==
LOC: ERS 21:30 → 2NO 22:53 → NEURO 10-03 22:49 → CCU 10-08 05:53
PROVIDERS: ADMIT Student in an Organized Health Care Education/Training Program; ATTEND Internal Medicine
PROC: 5A1945Z Respiratory Ventilation, 24-96 Consecutive Hours (ICD-10-PCS; principal; 2022-10-08)
PROC: 06HY33Z Insertion of Infusion Device into Lower Vein, Percutaneous Approach (ICD-10-PCS; 2022-10-08)
PROC: 3E043XZ Introduction of Vasopressor into Central Vein, Percutaneous Approach (ICD-10-PCS; 2022-10-08)
PROC: 30243P1 Transfusion of Nonautologous Frozen Red Cells into Central Vein, Percutaneous Approach (ICD-10-PCS; 2022-10-08)
PROC: 30243N1 Transfusion of Nonautologous Red Blood Cells into Central Vein, Percutaneous Approach (ICD-10-PCS; 2022-10-08)
PROC: 30243R1 Transfusion of Nonautologous Platelets into Central Vein, Percutaneous Approach (ICD-10-PCS; 2022-10-08)
PROC: 0BH17EZ Insertion of Endotracheal Airway into Trachea, Via Natural or Artificial Opening (ICD-10-PCS; 2022-10-08)
DX: J15.9 Unspecified bacterial pneumonia (principal); I50.33 Acute on chronic diastolic (congestive) heart failure; J96.01 Acute respiratory failure with hypoxia; I63.512 Cerebral infarction due to unspecified occlusion or stenosis of left middle cerebral artery; R57.1 Hypovolemic shock; R57.8 Other shock; R09.2 Respiratory arrest; K72.00 Acute and subacute hepatic failure without coma; I13.0 Hypertensive heart and chronic kidney disease with heart failure and stage 1 through stage 4 chronic kidney disease, or unspecified chronic kidney disease; J44.1 Chronic obstructive pulmonary disease with (acute) exacerbation; J44.0 Chronic obstructive pulmonary disease with (acute) lower respiratory infection; N18.4 Chronic kidney disease, stage 4 (severe); N17.9 Acute kidney failure, unspecified; D62 Acute posthemorrhagic anemia; E11.65 Type 2 diabetes mellitus with hyperglycemia; Z20.822 Contact with and (suspected) exposure to COVID-19; E03.9 Hypothyroidism, unspecified; E78.00 Pure hypercholesterolemia, unspecified; E11.22 Type 2 diabetes mellitus with diabetic chronic kidney disease; D63.1 Anemia in chronic kidney disease; E78.5 Hyperlipidemia, unspecified; N28.89 Other specified disorders of kidney and ureter; I65.23 Occlusion and stenosis of bilateral carotid arteries; R58 Hemorrhage, not elsewhere classified; G93.89 Other specified disorders of brain; Z90.49 Acquired absence of other specified parts of digestive tract; Z90.710 Acquired absence of both cervix and uterus; Z79.899 Other long term (current) drug therapy; Z79.82 Long term (current) use of aspirin; Z79.84 Long term (current) use of oral hypoglycemic drugs
CPT/HCPCS: 36415; 36416; 36430; 70450; 70496; 70498; 71045; 71046; 74018; 74176; 78451; 80048; 80053; 80061; 82805; 83605; 83735; 83880; 84100; 84145; 84484; 85014; 85018; 85025; 85027; 85610; 85730; 86850; 86900; 86901; 87040; 93005; 93306; 94002; 94003; 94640; 95712; 95819; 95957; A9540; C9113; J0360; J0696; J1644; J1650; J1815; J1940; J2270; J2405; J2543; J2597; J2920; J3430; J3490; J7030; J7050; J7120; J7512; J7620; P9016; P9035; P9059; Q9967; U0003; U0005